=== PATIENT | male | born 1975 | race Hispanic/Latino ===

== ENCOUNTER 2023-05-19 08:08 | Day surgery (SDC) | payer OTHER ==
--- NOTE | 2023-05-16 12:48 | EKG ---
Test Date: 2023-05-16 Test Time: 10:58:33 Assembly Person: NOELLE MEASUREMENT RESULTS: Intervals: Rate: 58 ID: [id number] QRSD: 88 QT: 408 QTc: 400 [place]: P: 42 ID: [id number] QRS: 7 T: 16 INTERPRETIVE STATEMENTS: Sinus bradycardia Otherwise normal ECG No previous ECG available for comparison Electronically Signed On 05-16-23 12:47:47 CDT by Paul Pedraza
[2023-05-19] MEDS ORDERED: Ringers Lactate 1,000 ML IV ONE (08:35)
[2023-05-19 09:49] VITALS: O2SAT 98
[2023-05-19] MEDS ORDERED: LIDOCAINE 1% MPF 30 ML VIAL ONE (09:59)
[2023-05-19] MEDS ORDERED: propofoL 200 MG/20 ML VIAL IV ONE (09:59)
--- NOTE | 2023-05-19 11:08 | P.OP ---
Date of Service: 05/19/23 Surgeon: Dr. Miriam Jamison Client Development Director: None Procedure: Evaluation of sleep disordered breathing by examination of upper airway using an endoscope; CPT: 26014 Preoperative diagnosis: Moderate or severe obstructive sleep apnea with positive airway pressure intolerance. Postoperative diagnosis: Moderate or severe sleep apnea with positive pressure airway intolerance. Anesthesia: IV sedation Estimated blood loss: None Complications: [None] Brief clinical history: This is a 47-year-old patient with a history of moderate to severe symptomatic obstructive sleep apnea who is intolerant and unable to achieve benefit with positive pressure therapy. The patient had a sleep study performed February 27, 2022 at which time his BMI was 29.1. His AHI was 20.7 with predominant hypopneas. There were no central or mixed apneas noted. He had 5 unclassified apneas. His oxygen elo was less than 88% for 58 minutes of the study with an oxygen elo of 75 and baseline of 96. Due to his history of PTSD and claustrophobia, he has struggled with compliance of CPAP. He notes that the mask frequently comes off at night. He has excess leaking with a full facemask but found the nasal mask and nasal pillows came off too easily and that he tended to breathe through his mouth when asleep. They present today for drug-induced sleep endoscopy to better characterize the location and pattern of obstruction and to predict appropriate medical and/or surgical options moving forward Procedure findings: There was no evidence of complete concentric palatal obstruction and they appear to be a candidate anatomically for hypoglossal nerve stimulation therapy. Description of procedure: The patient was brought to the endoscopy suite and was administered anesthesia via standard drug-induced sleep endoscopy protocol. The patient was administered propofol while under monitoring including oxygen concentration, CO2, blood pressure, and pulse under conditions felt to mimic sleep. The patient was nonresponsive to verbal commands but maintained spontaneous respiration. Patient was noted to have observed apnea and snoring consistent with diagnosis of obstructive sleep apnea. Under these conditions, the flexible endoscope was inserted into both sides of the nose and advanced to the nasopharynx, and oral pharynx with observation of the larynx. The patient was noted to have significant right-sided septal spur. The scope was then passed through the left nasal cavity into the nasopharynx. He had no significant secretions. He had mild collapse of the soft palate in the anterior posterior position but no significant lateral collapse was observed. At the conclusion of the exam, the scope was withdrawn. There was no evidence of any injury to the nasal mucosa and no evidence of active epistaxis. The patient was monitored with spontaneous ventilation until the patient's level of alertness increased and they responded to verbal commands and demonstrated active and intact control of their airway. The patient was then transferred to appropriate recovery prior to discharge. In summary, there was no evidence of complete concentric palatal obstruction and they appeared to be a candidate anatomically for hypoglossal nerve stimulation. I was present for and personally performed the entire procedure.
[2023-05-19 13:37] VITALS: BP 133/77; TEMP 98.2
== END 2023-05-19 11:40 | disposition home or self-care (01) ==
LOC: OR 08:08
PROVIDERS: ATTEND Otolaryngology
PROC: 0CJY8ZZ Inspection of Mouth and Throat, Via Natural or Artificial Opening Endoscopic (ICD-10-PCS; principal; 2023-05-19 09:45)
DX: G47.33 Obstructive sleep apnea (adult) (pediatric) (principal); R06.83 Snoring; F43.10 Post-traumatic stress disorder, unspecified; F32.A Depression, unspecified; F90.9 Attention-deficit hyperactivity disorder, unspecified type; Z68.29 Body mass index [BMI] 29.0-29.9, adult
CPT/HCPCS: 93005; 42975; J2704; J2001; J7120